=== PATIENT | female | born 1990 | race Caucasian/White ===

== ENCOUNTER 2019-03-05 18:17 | Emergency (ER) | payer MEDICAID, OTHER ==
[2019-03-05 18:43] VITALS: BP 145/86
[2019-03-05] MEDS ORDERED: DOXYcycline CAP(*) 100 MG PO ONE (19:54)
--- NOTE | 2019-03-05 20:01 | ED ---
Skin Complaint - HPI Summary HPI Summary: 29 yr old with tick bite. The patient states she believes she acquired the tick yesterday and found it attached this evening. She pulled it off but the head was left in. She requests me to remove it. she has no other complaints. - History of Current Complaint Chief Complaint: [facility] Time Seen by Provider: 03/05/19 19:39 Stated Complaint: TICK Hx Last Menstrual Period: 02/20/19 Pain Intensity: 0 - Allergy/Home Medications Allergies/Adverse Reactions: Allergies Allergy/AdvReac Type Severity Reaction Status Date / Time codeine Allergy Unknown Rash Verified 03/05/19 18:31 morphine Allergy Unknown Itching Verified 03/05/19 18:31 Home Medications: Home Medications Etonogestrel [Nexplanon] 68 mg IMPLANT 03/05/19 [History] PMH/Surg Hx/FS Hx/Imm Hx Respiratory History: Reports: Hx Asthma - Surgical History Surgery Procedure, Year, and Place: tonsillectomy age 12 yo. . RIGHT LEG ANDREA WITH SCREWS Infectious Disease History: No Infectious Disease History: Denies: Traveled Outside the [place] in Last 30 Days - Family History Known Family History: Positive: None - Social History Lives: With Family Alcohol Use: Occasionally Substance Use Type: Reports: Marijuana Smoking Status (MU): Former Smoker Review of Systems Constitutional: Negative Positive: Other - tick bite All Other Systems Reviewed And Are Negative: Yes Physical Exam Triage Information Reviewed: Yes Vital Signs On Initial Exam: Initial Vitals Temp Pulse Resp BP Pulse Ox 98.8 F 82 18 145/86 96 03/05/19 18:32 03/05/19 18:32 03/05/19 18:32 03/05/19 18:32 03/05/19 18:32 Vital Signs Reviewed: Yes Appearance: Positive: Well-Appearing, No Pain Distress Skin: Positive: Warm, Skin Color Reflects Adequate Perfusion, Other - tick bite right flank with tick head present but rest was broken off by patient. Eyes: Positive: Normal ENT: Positive: Normal ENT inspection Neck: Positive: Nontender Respiratory/Lung Sounds: Positive: Clear to Auscultation, Breath Sounds Present Cardiovascular: Positive: RRR. Negative: Murmur Abdomen Description: Positive: Soft Musculoskeletal: Positive: Strength/ROM Intact Neurological: Positive: Sensory/Motor Intact, Alert, Oriented to Person Place, Time, CN Intact II-III Psychiatric: Positive: Normal Procedures - Procedure Summary Procedure Summary: Tick head was removed using aseptic technique with splinter forceps and alcohol prep by me. She tolerated this well. Diagnostics - Vital Signs Vital Signs Temp Pulse Resp BP Pulse Ox 03/05/19 18:32 98.8 F 82 18 145/86 96 - Laboratory Lab Statement: Any lab studies that have been ordered have been reviewed, and results considered in the medical decision making process. Course/Dx - Course Course Of Treatment: Tick bite. DC home. One dose of doxy given. - Diagnoses Provider Diagnoses: Tick bite Discharge ED - Sign-Out/Discharge Documenting (check all that apply): Patient Departure All imaging exams completed and their final reports reviewed: No Studies - Discharge Plan Condition: Good Disposition: HOME Patient Education Materials: Tick Bite (ED), Hypertension (ED) Referrals: Inge Banks MD [Primary Care Provider] - 2 Days - Billing Disposition and Condition Condition: GOOD Disposition: Home
== END 2019-03-05 20:04 | disposition home or self-care (01) ==
LOC: UCCORT 18:17
DX: S30.861A Insect bite (nonvenomous) of abdominal wall, initial encounter (principal); J45.909 Unspecified asthma, uncomplicated; Z87.891 Personal history of nicotine dependence; W57.XXXA Bitten or stung by nonvenomous insect and other nonvenomous arthropods, initial encounter; Y92.9 Unspecified place or not applicable
CPT/HCPCS: 99202; A9270-GY; G0463